=== PATIENT | male | born 1965 | race African-American/Black ===

== ENCOUNTER 2016-12-07 22:38 | Observation (INO) | payer BC ==
[2016-12-07 22:38] LABS: BASOPHILS 0.7 %; BASOPHILS ABSOLUTE 0.05 10/3/uL (0.0-0.16); ER CBC TAT 0 Hrs 05 Mins; HEMATOCRIT 40.2 % (40.0-51.0); HEMOGLOBIN 13.5 g/dL (13.6-17.8); IMMATURE GRANULOCYTES 0.3 %; IMMATURE GRANULOCYTES ABSOLUTE 0.02 10/3/uL (0.0-0.11); LYMPHOCYTES 20.5 %; LYMPHOCYTES ABSOLUTE 1.52 10/3/uL (0.67-4.30); MEAN CORPUS HGB CONC 33.6 g/dL (32.0-36.0); MEAN CORPUSCULAR HEMOGLOB 30.3 pg (26.0-34.0); MEAN CORPUSCULAR VOLUME 90.3 fL (80-100); MEAN PLATELET VOLUME 8.5 fL (9.2-13.0); MONOCYTES 7.3 %; MONOCYTES ABSOLUTE 0.54 10/3/uL (0.21-1.20); NEUTROPHILS 67.2 %; PLATELET COUNT 296 10/3/uL (150-400); RED CELL COUNT 4.45 10/6/uL (4.7-6.1); WHITE BLOOD CELLS 7.4 10/3/uL (4.5-10.5)
[~2016-12-07 22:38] MED LIST: ADDERALL15 MG PO; ADDERALL20 MG PO; ASA5GR PO; KAPIDEX60 MG PO; LEVAQUIN750 MG PO; LORT7 PO; LORTAB10 PO; METHOC500B PO; MSCONT15 PO; NAP500 PO; NEUR300 PO; NORCO1 TA1 PO; PERCOCET1 TA4 PO; PRILO PO; RANITIDINE300 MG PO; SPIRIVA INH; TRAZODONE300 MG PO; WELLSR150 PO
[2016-12-07 22:39] LABS: MANUAL DIFF NO %
[2016-12-07 22:46] LABS: INTERNATIONAL NORMAL RATI 0.9 UNITS (-); PARTIAL THROMBO TIME 25.3 SEC (22.5-37.2); PROTIME (NOT ORD) 12.4 SEC (12.0-14.5)
[2016-12-07 22:50] LABS: BE (BASE EXCESS) -0.4 MEQ/L (0 +/- 2.5); HEMOBLOGIN CONTENT 14.3 G/DL (14-18); INSTRUMENT SERIAL # 8087; METHEMOGLOBIN 0.3 % (0-3); PCO2 (CO2 TENSION) 44 MMHG (35-45); PO2 (O2 TENSION) 79 MMHG (79-93); SAMPLE Arterial; pH 7.37 (7.37-7.43)
[2016-12-07 22:55] LABS: ALKALINE PHOSPHATASE 89 U/L (45-117); CHEST PAIN PROFILE TAT 0 Hrs 22 Mins; CHLORIDE, SERUM 105 MMOL/L (96-112); CO2 (CARBON DIOXIDE) 28 MMOL/L (24-34); CREATININE 1.39 MG/DL (0.70-1.30); GFR AFRICAN AMERICAN 67 ML/MIN (>=60); GFR NON AFRICAN AMERICAN 58 ML/MIN (>=60); GLUCOSE, SERUM 94 MG/DL (60-99); SGOT(AST) 17 U/L (5-40); SGPT(ALT) 24 U/L (5-65); SODIUM, SERUM 141 MMOL/L (135-148); TOTAL BILIRUBIN 0.3 MG/DL (0-1.2); TOTAL PROTEIN 7.9 G/DL (6.0-8.5); TROPONIN I <0.02 NG/ML (<0.05)
[2016-12-07 22:56] LABS: BUN (BLOOD UREA NITROGEN) 14 MG/DL (6-23); DIRECT BILIRUBIN < 0.1 MG/DL (0.0-0.4); INDIRECT BILIRUBIN(NOT ORDER) 0.2 MG/DL (0.1-0.9)
== END 2016-12-08 05:10 | disposition home or self-care (01) ==
LOC: ER 22:38 → SSU1 23:59
PROVIDERS: Nurse Practitioner Acute Care
DX: R07.1 Chest pain on breathing (principal); I25.2 Old myocardial infarction; J44.9 Chronic obstructive pulmonary disease, unspecified; K21.9 Gastro-esophageal reflux disease without esophagitis; N40.0 Benign prostatic hyperplasia without lower urinary tract symptoms; F32.9 Major depressive disorder, single episode, unspecified; Z90.89 Acquired absence of other organs; Z95.5 Presence of coronary angioplasty implant and graft; Z88.0 Allergy status to penicillin; Z91.040 Latex allergy status; Z88.5 Allergy status to narcotic agent; Z91.013 Allergy to seafood
CPT/HCPCS: 36600; 71010; 71275; 80048; 80076; 82805; 83735; 84484; 85025; 85610; 85730; 93005; 96374; 99285; A9270-GY; G0378; J2405; Q9967